=== PATIENT | female | born 1975 | race Caucasian/White ===

== ENCOUNTER 2024-09-14 08:15 | Outpatient (RCR) | payer OTHER, SELFPAY | END 2024-10-29 14:10 | disposition home or self-care (01) | PROVIDERS: PCP Internal Medicine; Visit Provider Orthopaedic Surgery | DX: S46.912A Strain of unspecified muscle, fascia and tendon at shoulder and upper arm level, left arm, initial encounter (principal); G89.11 Acute pain due to trauma; M25.512 Pain in left shoulder; M25.612 Stiffness of left shoulder, not elsewhere classified; Z51.89 Encounter for other specified aftercare | CPT/HCPCS: 97110; 97112; 97140; 97161 ==